=== PATIENT | male | born 1950 | race Caucasian/White ===

== ENCOUNTER 2022-07-01 19:17 | Inpatient (IN) | payer MEDICARE, OTHER ==
[~2022-07-01] VITALS: Ht 175.3 cm; Wt 72.6 kg
--- NOTE | 2022-07-01 20:42 | NUR ---
BIBTRANSPORTER FROM [facility] FOR PSYCH EVAL AND MEDICAL CLEARANCE FOR SI. PT DENIES ANY SI/HI AT THIS TIME. PT AWAKE AND ALERT BREATHING UNLABORED. SAFETUY MEASURES IN PLACE AND SITTER AT BEDSIDE
--- NOTE | 2022-07-01 20:45 | NUR ---
COVID SWAB DONE AND URINE SAMPLE SECURED
--- NOTE | 2022-07-01 21:04 | NUR ---
BLOOD DROW AT BED SIDE
[2022-07-01 21:30] LABS: BASOPHILS # (AUTO) 0.1 K/uL (0.0-0.2); BASOPHILS % (AUTO) 0.8 % (0.0-2.0); EOSINOPHILS % (AUTO) 0.9 % (0.0-6.0); HEMATOCRIT 44 % (39-51); HEMOGLOBIN 14.4 g/dL (13.5-17.5); LYMPHOCYTES # (AUTO) 1.9 K/uL (0.8-4.8); LYMPHOCYTES % (AUTO) 17.3 % (20.0-44.0); MEAN CORPUSCULAR HGB CONC 33 g/dl (31.0-36.0); MEAN CORPUSCULAR VOLUME 89 fL (80-96); MONOCYTES # (AUTO) 0.6 K/uL (0.1-1.30); MONOCYTES % (AUTO) 5.8 % (2.0-12.0); NEUTROPHILS # (AUTO) 8.3 K/uL (1.8-8.9); NEUTROPHILS % (AUTO) 75.2 % (43.0-81.0); PLATELET COUNT (AUTO) 349 K/uL (150-450); RED BLOOD CELL COUNT(AUTO) 4.88 MIL/uL (4.5-6.0)
[2022-07-01 21:52] LABS: CALCIUM, SERUM 8.3 mg/dL (8.5-10.1); CARBON DIOXIDE 30 mmol/L (21-32); CHLORIDE 102 mmol/L (98-107); CREATININE 1.1 mg/dL (0.6-1.3); GLUCOSE 102 mg/dL (74-106); POTASSIUM 3.7 mmol/L (3.5-5.1); SODIUM SERUM 137 mmol/L (136-145); UREA NITROGEN, BLOOD 16 mg/dL (7-18)
[2022-07-01 21:57] LABS: ALANINE AMINOTRANSFERASE 51 U/L (12-78); ALBUMIN 3.6 g/dL (3.4-5.0); ALCOHOL, BLOOD < 3 mg/dL (0-0); ALKALINE PHOSPHATASE 112 U/L (46-116); ASPARTATE AMINOTRANSFERASE 34 U/L (15-37); BILIRUBIN,DIRECT 0.1 mg/dL (0.0-0.2); BILIRUBIN,TOTAL 0.4 mg/dL (0.2-1.0); TOTAL PROTEIN, SERUM 8.3 g/dL (6.4-8.2)
[2022-07-01 21:58] LABS: ACETAMINOPHEN 0 ug/ml (10-30)
[2022-07-02 00:30] LABS: BILIRUBIN,URINE NEGATIVE (NEGATIVE); COLOR,URINE YELLOW (YELLOW); LEUKOCYTE ESTERASE ,URINE 1+ (NEGATIVE); NITRITE, URINE POSITIVE (NEGATIVE); PH,URINE 6.5 (5.0-8.0); PROTEIN,URINE TRACE mg/dl (NEGATIVE); UGLUCOSE NEGATIVE (NEGATIVE); UROBILINOGEN,URINE 0.2 EU/dL (0.2)
--- NOTE | 2022-07-02 00:33 | NUR ---
[facility] FOR PMRT FOR EVALUATION
[2022-07-02 00:49] LABS: BACTERIA,URINE Rare /HPF (None Seen); SQUAMOUS EPITHELIAL CELL,UR Many /HPF (None Seen); WBC,URINE 0-2 /HPF (0-3)
--- NOTE | 2022-07-02 04:21 | NUR ---
REPORT GIVEN TO GPS NURSE
--- NOTE | 2022-07-02 05:15 | NUR ---
PT TRANSPORTED TO [facility] VIA WHEELCHAIR IN STABLE CONDITION
[2022-07-02] MEDS ORDERED: ACETAMINOPHEN 325 MG TABLET PO PRN ×2 (05:30→08:00)
[2022-07-02] MEDS ORDERED: ZOLPIDEM TARTRATE 5 MG TABLET PO PRN (05:30)
[2022-07-02] MEDS ORDERED: MAGNESIUM HYDROXIDE 30 ML UDC PO PRN ×2 (05:30→08:00)
[2022-07-02] MEDS ORDERED: MAG HYDROX/AL HYDROX/SIMETH 30 ML UDC PO PRN (05:30)
--- NOTE | 2022-07-02 05:38 | NUR ---
RN NOTES : ADMISSION NOTES: ADMITTED THIS 72Y/O MALE PATIENT ADMIT FROM [facility]/ED INITIALLY FROM [facility]. ADMITTED TO 5150 HOLD, DTO ,DTS, GD, PER HOLD PT. AGGRESSIVE BEHAVIOR , NON COMPLIANT WITH MEDS,AT FACILITY PT. HAS ANGER OUTBURTS, ATTACKS HIS ROOMMATES AND STAFF REFUSES HIS MEDS AND YELLS AND SCREAMS , UPON FACE TO FACE ASSESSMENT PATIENT IS A&O X2 ANXIOUS ,EASILY AGITATED , PARANOID, FORGETFUL , DISORGNIZED, DISHELVED, GUARDED, DISHELVED, POOR HYGIENE, UNCOOPERTIVE,POOR DECISION MAKING, DENIES SI /HI AT THIS TIME, PT. IS POOR HISTORIAN, POOR INSIGHT ,POOR JUDGEMENT, PT. REFUSED TO ADMISSION CONSENT PAPERS, DUE TO AGITATED, CONFUSED , BOTH MD AWARE AND NOTIFIED OF THE ADMISSION, BELONGINGS CONTRABAND WERE DONE , PT. RIGHTS DISCUSS BY PACKAGING MANAGER , PROVIDE THE PT. WITH HANDBOOK, AND MEDICATIONS GUIDE, ENVIRONMENTAL SAFETY CHECK DONE, ENCOURAGED PT. VERBALIZED ANY FEELING CONCERN TO STAFF, ORIENT TO UNIT POLICY, NO ACUTE DISTRESS NOTED,VITAL SIGNS WNL ,DENIES ANY PAIN AT THIS TIME,WILL CONTINUE TO MONITOR FOR Q15 SAFETY AND BEHAVIOR.
[2022-07-02] MEDS ORDERED: BLOOD SUGAR DIAGNOSTIC 1 EACH STRIP IN ONE (05:45)
[2022-07-02] MEDS ORDERED: ASPI-1420 PO (05:56)
[2022-07-02] MEDS ORDERED: DOCU100C36 PO (05:57)
[2022-07-02] MEDS ORDERED: ATOR80TA PO (05:57)
[2022-07-02] MEDS ORDERED: HYDR12.55 PO (05:58)
[2022-07-02] MEDS ORDERED: LORA10TA7 PO (05:58)
[2022-07-02] MEDS ORDERED: MULT-754 PO (05:59)
[2022-07-02] MEDS ORDERED: QUET25TA PO (05:59)
[2022-07-02] MEDS ORDERED: ASCO500C18 PO (06:00)
[2022-07-02] MEDS ORDERED: CHOL500062 PO (06:01)
--- NOTE | 2022-07-02 06:16 | NUR ---
RN NOTES : PT. REFUSED FULL BODY SKIN ASSESSMENT AND PHOTOS, BUT PT. ALLOWED ONLY LEGS AND FOOTS SKIN ASSESSMENT. ENCOURAGED X3 , PT. STRONGLY REFUSED , PER PT. MY SKIN IS FINE.
[2022-07-02] MEDS ORDERED: LORAZEPAM 1 MG TABLET PO PRN (06:30)
[2022-07-02 06:38] VITALS: BP 125/72
[2022-07-02] MEDS ORDERED: Z GUARD REMEDY 4 OZ OINT TP PRN (07:00)
--- NOTE | 2022-07-02 07:06 | NUR ---
RN NOTES: CALLED FAMILY MEMEBER AND LEFT VOICE MAIL MESSAGES TO ANGELINE ANDREW (SISTER) AT [phone] , REGARDING ABOUT PT. ADMITTED IN [facility].
[2022-07-02 08:00] VITALS: BP 137/65
[2022-07-02] MEDS: LORAZEPAM 1 MG TABLET PO PRN (08:00)
--- NOTE | 2022-07-02 08:00 | NUR ---
Pt. is anxious, irritable, screaming, verbally abusive, demanding and angry to the staffs. Ativan po prn given and will continue to monitor for safety.
[2022-07-02] MEDS: DOCUSATE SODIUM 100 MG CAPSULE PO SCH ×2 (09:41→16:36)
[2022-07-02] MEDS: ASPIRIN EC 81 MG TABLET.DR PO SCH (09:41)
[2022-07-02] MEDS: LORATADINE 10 MG TABLET PO SCH (09:41)
--- NOTE | 2022-07-02 09:50 | NUR ---
RN Notes: Received pt. in a wheelchair in his room, guarded upon approached. Pt. was anxious, irritable, screaming, verbally abusive, demanding and angry to the staffs and Ativan po prn given. After pt. took the Ativan po pt.became cooperative and compliant on morning meds.Pt. is unkempt and malodorous and refused to take shower and said he will do it tomorrow. Encouraged to verbalize feelings and encouraged to take shower. Needs attended and will continue to monitor for safety.
--- NOTE | 2022-07-02 10:35 | NUR ---
Pt. refused for full body assessment and only allowing only the legs for the assessment. Staff noticed that pt. has big part on the private area under his pants but doesn't want us to see and per pt. he has a Pagevamp and it's been there for 10 years.
[2022-07-02] MEDS: Z GUARD REMEDY 4 OZ OINT TP SCH (14:37)
[2022-07-02 16:00] VITALS: BP 142/62
[2022-07-02] MEDS: risperiDONE 1 MG TABLET PO SCH (16:36)
[2022-07-02 20:00] VITALS: BP 126/68
[2022-07-02] MEDS: ZOLPIDEM TARTRATE 5 MG TABLET PO PRN (21:16)
[2022-07-02] MEDS: ATORVASTATIN 40 MG TABLET PO SCH (21:16)
[2022-07-03 08:00] VITALS: BP 133/75
[2022-07-03] MEDS ORDERED: ASCO500T10 PO (10:06)
[2022-07-03] MEDS ORDERED: MAG30ORA PO (10:06)
[2022-07-03] MEDS: Z GUARD REMEDY 4 OZ OINT TP SCH (10:43)
[2022-07-03] MEDS: MULTIVITAMINS,THERAGRAN 1 UDTAB TABLET PO SCH (10:45)
[2022-07-03] MEDS: DOCUSATE SODIUM 100 MG CAPSULE PO SCH ×2 (10:46→16:17)
[2022-07-03] MEDS: ASCORBIC ACID 500 MG TABLET PO SCH (10:46)
[2022-07-03] MEDS: CHOLECALCIFEROL 1,000 UNIT TABLET (VIT D3) PO SCH (10:47)
[2022-07-03] MEDS: HYDROCHLOROTHIAZIDE 25 MG TABLET PO SCH (10:48)
[2022-07-03] MEDS: LORATADINE 10 MG TABLET PO SCH (10:48)
[2022-07-03] MEDS: risperiDONE 1 MG TABLET PO SCH ×2 (10:49→16:17)
[2022-07-03] MEDS: ASPIRIN EC 81 MG TABLET.DR PO SCH (10:50)
[2022-07-03 16:00] VITALS: BP 126/80
[2022-07-03 20:25] VITALS: BP 132/61
[2022-07-03] MEDS: ATORVASTATIN 40 MG TABLET PO SCH (21:25)
--- NOTE | 2022-07-03 21:42 | NUR ---
RN NOTE PT REQUESTS FOR "SLEEPING PILL"; PT ADMINISTERED ZOLPIDEM 5 MG. 2000 BP OF 132/61, HR OF 62. WILL MONITOR FOR EFFECTIVENESS.
[2022-07-03] MEDS: ZOLPIDEM TARTRATE 5 MG TABLET PO PRN (21:45)
--- NOTE | 2022-07-03 22:16 | NUR ---
GPS NOTE PATIENT RECEIVED IN BED, AWAKE, A&O X2. NO S/S OF RESP DISTRESS, NO SOB OR COUGH, NON-LABORED AND EQUAL BREATHING. PT COMPLIANT WITH MEDICATIONS; COOPERATIVE. PATIENT APPEARS CALM AT THE MOMENT WITH NO SIGNS OF EMOTIONAL DISTRESS. NEED MINIMAL ASSIST WITH ADL'S. ALL NEEDS ATTENDED AND ANTICIPATED. WILL CONTINUE TO MONITOR THROUGHOUT THE NIGHT Q15MIN FOR SAFETY AND BEHAVIOR.
--- NOTE | 2022-07-04 06:36 | NUR ---
RN NOTE PT REFUSED AM LABS
--- NOTE | 2022-07-04 06:55 | NUR ---
GPS NOTE PATIENT REMAINS IN BED, ASLEEP BUT EASILY AROUSABLE, A&O X2. NO S/S OF RESP DISTRESS, NO SOB OR COUGH, NON-LABORED AND EQUAL BREATHING. PT COMPLIANT WITH MEDICATIONS. PATIENT REMAINED CALM AND COOPERATIVE THROUGHOUT THE NIGHT WITH NO SIGNS OF EMOTIONAL DISTRESS. NEED MINIMAL ASSIST WITH ADL'S. ALL NEEDS ATTENDED. ALL DUE MEDS ADMINISTERED DURING THE NIGHT. WILL ENDORSE TO DAYSHIFT NURSE TO CONTINUE CARE.
[2022-07-04 08:00] VITALS: BP 118/58
[2022-07-04] MEDS: DOCUSATE SODIUM 100 MG CAPSULE PO SCH ×2 (08:50→17:21)
[2022-07-04] MEDS: risperiDONE 1 MG TABLET PO SCH (08:51)
[2022-07-04] MEDS: LORATADINE 10 MG TABLET PO SCH (08:52)
[2022-07-04] MEDS: ASCORBIC ACID 500 MG TABLET PO SCH (08:52)
[2022-07-04] MEDS: MULTIVITAMINS,THERAGRAN 1 UDTAB TABLET PO SCH (08:52)
[2022-07-04] MEDS: ASPIRIN EC 81 MG TABLET.DR PO SCH (08:52)
[2022-07-04] MEDS: CHOLECALCIFEROL 1,000 UNIT TABLET (VIT D3) PO SCH (08:52)
[2022-07-04] MEDS: Z GUARD REMEDY 4 OZ OINT TP SCH (08:53)
[2022-07-04] MEDS: HYDROCHLOROTHIAZIDE 25 MG TABLET PO SCH (08:53)
--- NOTE | 2022-07-04 09:42 | NUR ---
GABBIE Initial Discharge Plan: Patient currently resides at [facility] [place] [address]; ([phone]) he has been residing at the facility for three years. GABBIE goreharley Lujan ([phone]) stated that she would have to discuss with treatment team and will let this typewriter ribbon winder know if pt is welcomed back or not. GABBIE will contact pt's sister Charlene ([phone]) to discuss treatment/discharge plan. GABBIE will work with the MD, family, and treatment team to help coordinate appropriate discharge.
--- NOTE | 2022-07-04 09:42 | NUR ---
GABBIE Clinical Note: Pt placed on a 5150 hold for danger to himself, danger to others, and GD. Per hold, pt has been aggressive with staff and non complaint. Patient currently resides at [facility] [place] [address]; ([phone]) he has been residing at the facility for three years. GABBIE gauthier Tai ([phone]) stated that she would have to discuss with treatment team and will let this manual writer know if pt is welcomed back or not. GABBIE will contact pt's sister Charlene ([phone]) to discuss treatment/discharge plan.
--- NOTE | 2022-07-04 09:43 | NUR ---
Treatment Plan: Pt refused to sign and was suspicious.
--- NOTE | 2022-07-04 11:50 | NUR ---
GABBIE Family Contact: SW contacted pt's sister Charlene ([phone]) and left a detailed voicemail of pt's discharge/treatment plan.
[2022-07-04 12:10] LABS: BASOPHILS # (AUTO) 0.1 K/uL (0.0-0.2); EOSINOPHILS % (AUTO) 2.5 % (0.0-6.0); HEMATOCRIT 44 % (39-51); HEMOGLOBIN 14.5 g/dL (13.5-17.5); LYMPHOCYTES # (AUTO) 1.8 K/uL (0.8-4.8); LYMPHOCYTES % (AUTO) 20.7 % (20.0-44.0); MEAN CORPUSCULAR HGB CONC 33 g/dl (31.0-36.0); MEAN CORPUSCULAR VOLUME 89 fL (80-96); MONOCYTES # (AUTO) 0.6 K/uL (0.1-1.30); MONOCYTES % (AUTO) 6.6 % (2.0-12.0); NEUTROPHILS % (AUTO) 69.2 % (43.0-81.0); PLATELET COUNT (AUTO) 315 K/uL (150-450); WHITE BLOOD COUNT (AUTO) 8.7 K/uL (4.3-11.0)
[2022-07-04 12:17] LABS: CALCIUM, SERUM 8.4 mg/dL (8.5-10.1); CREATININE 1.1 mg/dL (0.6-1.3); POTASSIUM 3.5 mmol/L (3.5-5.1)
--- NOTE | 2022-07-04 14:02 | NUR ---
GABBIE Family Contact: SW contacted pt's sister Charlene ([phone]) and discussed pt's treatment. She stated that pt was diagnosed with schizophrenia. She reported that she would want pt back to [facility], however, she reported if that does not work out she would want this designer/writer to try another placement possibly [facility].
--- NOTE | 2022-07-04 14:48 | NUR ---
Facility Contact: SW spoke with Julio Goldsmith from [place] ([phone]) and he stated that pt is welcomed back but would prefer pt to go to a different facility.
[2022-07-04 16:00] VITALS: BP 122/68
[2022-07-04] MEDS: risperiDONE 0.25 MG TABLET PO SCH (17:45)
[2022-07-04 19:45] VITALS: BP 105/59
[2022-07-04] MEDS: ATORVASTATIN 40 MG TABLET PO SCH (21:28)
[2022-07-04] MEDS: ZOLPIDEM TARTRATE 5 MG TABLET PO PRN (21:29)
[2022-07-05 08:00] VITALS: BP 147/72
--- NOTE | 2022-07-05 08:18 | NUR ---
SNF REFERRAL: GABBIE SENT CLINICALS TO GA DAVIS FROM [facility] ([phone]) FOR PLACEMENT. SW SENT H & P, PROGRESS NOTES, AND MEDICATION LIST.
[2022-07-05] MEDS: LORATADINE 10 MG TABLET PO SCH (08:22)
[2022-07-05] MEDS: ASCORBIC ACID 500 MG TABLET PO SCH (08:22)
[2022-07-05] MEDS: ASPIRIN EC 81 MG TABLET.DR PO SCH (08:22)
[2022-07-05] MEDS: DOCUSATE SODIUM 100 MG CAPSULE PO SCH ×2 (08:23→17:17)
[2022-07-05] MEDS: CHOLECALCIFEROL 1,000 UNIT TABLET (VIT D3) PO SCH (08:23)
[2022-07-05] MEDS: risperiDONE 0.25 MG TABLET PO SCH ×2 (08:23→17:17)
[2022-07-05] MEDS: HYDROCHLOROTHIAZIDE 25 MG TABLET PO SCH (08:24)
[2022-07-05] MEDS: Z GUARD REMEDY 4 OZ OINT TP SCH (08:24)
[2022-07-05] MEDS: MULTIVITAMINS,THERAGRAN 1 UDTAB TABLET PO SCH (08:24)
--- NOTE | 2022-07-05 14:12 | NUR ---
Facility Contact: SW spoke with Julio Admin from [place] ([phone]) and stated that pt stated he does not want to go to any other facility and wants to return back. Julio stated that pt is welcomed back and he will provide transportation.
--- NOTE | 2022-07-05 14:12 | NUR ---
SW Note: Pt stated that he would want to return back to [facility] and does not want to go to any other facility.
[2022-07-05 16:08] VITALS: BP 130/69
[2022-07-05 20:03] VITALS: BP 132/97
[2022-07-05] MEDS: ZOLPIDEM TARTRATE 5 MG TABLET PO PRN (21:05)
[2022-07-05] MEDS: ATORVASTATIN 40 MG TABLET PO SCH (21:06)
[2022-07-06 08:00] VITALS: BP 105/67
[2022-07-06] MEDS: DOCUSATE SODIUM 100 MG CAPSULE PO SCH ×2 (08:24→16:19)
[2022-07-06] MEDS: HYDROCHLOROTHIAZIDE 25 MG TABLET PO SCH (08:25)
[2022-07-06] MEDS: LORATADINE 10 MG TABLET PO SCH (08:25)
[2022-07-06] MEDS: CHOLECALCIFEROL 1,000 UNIT TABLET (VIT D3) PO SCH (08:26)
[2022-07-06] MEDS: MULTIVITAMINS,THERAGRAN 1 UDTAB TABLET PO SCH (08:28)
[2022-07-06] MEDS: Z GUARD REMEDY 4 OZ OINT TP SCH (08:28)
[2022-07-06] MEDS: risperiDONE 0.25 MG TABLET PO SCH ×2 (09:00→16:20)
[2022-07-06] MEDS: ASPIRIN EC 81 MG TABLET.DR PO SCH (09:01)
[2022-07-06] MEDS: ASCORBIC ACID 500 MG TABLET PO SCH (09:01)
[2022-07-06 16:00] VITALS: BP 127/78
--- NOTE | 2022-07-06 16:18 | NUR ---
RN-CO: CT OF PELVIS W/O CONTRAST DONE , AWAITING FOR RESULT.
--- NOTE | 2022-07-06 18:17 | NUR ---
RN-CO: DR BONNER (SURGEON MADE AWARE RE PT'S INGUINAL HERNIA ) OF THE CONSULT AND STATED " I WILL SEE THAT THE PT TOMORROW
[2022-07-06 20:03] VITALS: BP 117/73
[2022-07-06] MEDS: ZOLPIDEM TARTRATE 5 MG TABLET PO PRN (21:37)
[2022-07-06] MEDS: ATORVASTATIN 40 MG TABLET PO SCH (21:37)
[2022-07-07 08:00] VITALS: BP 127/74
[2022-07-07] MEDS: ASPIRIN EC 81 MG TABLET.DR PO SCH (08:00)
[2022-07-07] MEDS: CHOLECALCIFEROL 1,000 UNIT TABLET (VIT D3) PO SCH (08:01)
[2022-07-07] MEDS: MULTIVITAMINS,THERAGRAN 1 UDTAB TABLET PO SCH (08:01)
[2022-07-07] MEDS: HYDROCHLOROTHIAZIDE 25 MG TABLET PO SCH (08:02)
[2022-07-07] MEDS: LORATADINE 10 MG TABLET PO SCH (08:02)
[2022-07-07] MEDS: ASCORBIC ACID 500 MG TABLET PO SCH (08:02)
[2022-07-07] MEDS: risperiDONE 0.25 MG TABLET PO SCH ×2 (08:05→16:13)
[2022-07-07] MEDS: DOCUSATE SODIUM 100 MG CAPSULE PO SCH ×2 (08:05→16:13)
--- NOTE | 2022-07-07 08:39 | NUR ---
Dr. Matos in the unit and made aware of the result of the abdomen and the pelvis.
--- NOTE | 2022-07-07 09:20 | NUR ---
Dr. Streeter examined pt. in the unit.
--- NOTE | 2022-07-07 09:45 | NUR ---
RN Notes: Received pt. awake in bed, responsive to staffs, no distress and no agitation noted. Ate 100% for breakfast, compliant on meds and wanted it to be crushed. Pt. is with unsteady gait and pt. refused to use wheelchair and refused to use a walker and said he is fine. Encouraged to take shower and motivated to verbalize feelings. Pt. seen in the dining room and watching football. Needs attended and will continue to monitor for safety.
[2022-07-07] MEDS: Z GUARD REMEDY 4 OZ OINT TP SCH (10:12)
[2022-07-07] MEDS: MAG HYDROX/AL HYDROX/SIMETH 30 ML UDC PO PRN (14:05)
[2022-07-07 16:00] VITALS: BP 112/60
--- NOTE | 2022-07-07 19:30 | NUR ---
GPS RN NOTE, RECEIVED PATIENT AWAKE AND IN BED, NO S/S OR COMPLAINTS OF PAIN AT THIS TIME. PATIENT IS DISPLAYING NO S/S OF APPARENT DISTRESS AT THIS TIME. PATIENT BREATHING IS UNLABORED WITH EQUAL RISE AND FALL OF THE CHEST. PATIENT IS ALERT AND ORIENTED X 2 ON ROOM AIR WITH A SPO2 98%. PATIENT IS COMPLIANT WITH MEDICATIONS, LABILE, EASILY IRRITABLE, ACCEPTING REDIRECTION, AND COOPERATIVE. PATIENT DENIES SUICIDAL AND HOMICIDAL IDEATIONS AT THIS TIME. PATIENT ASSISTED WITH TURNING AND REPOSITIONING Q2HR AND PRN FOR COMFORT AND CIRCULATION. PATIENT HAS NO NEEDS AT THIS TIME. PATIENT EDUCATED ON THE USE OF THE CALL ESCALANTE. PATIENT BED SIDE RAILS UP X 2 FOR SAFETY. PATIENT BED IS LOCKED, LOW, WITH BED ALARM ON. WILL CONTINUE TO MONITOR THIS PATIENT Q15 MINUTES WITH THE HELP OF STAFF TO MAINTAIN SAFETY.
[2022-07-07] MEDS: LORAZEPAM 1 MG TABLET PO PRN (19:36)
--- NOTE | 2022-07-07 19:36 | NUR ---
GPS RN NOTE, PATIENT HAS A COMPLAINT OF FEELING ANXIOUS, IS YELLING, IS POSTURING, AND REQUESTING ATIVAN AT THIS TIME. PATIENT VITAL SIGNS ARE STABLE. GAVE ATIVAN 1 MG PO Q6HR PRN ORDERED. WILL REASSESS FOR ANXIETY AND I WILL CONTINUE TO MONITOR THIS PATIENT WITH THE HELP OF STAFF.
[2022-07-07 20:00] VITALS: BP 149/81
[2022-07-07] MEDS: ATORVASTATIN 40 MG TABLET PO SCH (21:51)
[2022-07-08] MEDS: ZOLPIDEM TARTRATE 5 MG TABLET PO PRN ×2 (02:26→21:32)
--- NOTE | 2022-07-08 02:26 | NUR ---
GPS RN NOTE, PATIENT HAS A COMPLAINT OF NOT BEING ABLE TO SLEEP AND IS REQUESTING AMBIEN AT THIS TIME. PATIENT VITAL SIGNS ARE STABLE. GAVE AMBIEN 5MG PO HS PRN ORDERED. WILL REASSESS FOR INSOMNIA AND I WILL CONTINUE TO MONITOR THIS PATIENT WITH THE HELP OF STAFF.
[2022-07-08 08:00] VITALS: BP 118/81
[2022-07-08] MEDS: CHOLECALCIFEROL 1,000 UNIT TABLET (VIT D3) PO SCH (08:49)
[2022-07-08] MEDS: MULTIVITAMINS,THERAGRAN 1 UDTAB TABLET PO SCH (08:49)
[2022-07-08] MEDS: ASCORBIC ACID 500 MG TABLET PO SCH (08:50)
[2022-07-08] MEDS: LORATADINE 10 MG TABLET PO SCH (08:50)
[2022-07-08] MEDS: DOCUSATE SODIUM 100 MG CAPSULE PO SCH ×2 (08:50→16:37)
[2022-07-08] MEDS: HYDROCHLOROTHIAZIDE 25 MG TABLET PO SCH (08:50)
[2022-07-08] MEDS: risperiDONE 0.25 MG TABLET PO SCH ×2 (08:50→16:37)
[2022-07-08] MEDS: ASPIRIN EC 81 MG TABLET.DR PO SCH (08:50)
[2022-07-08] MEDS: Z GUARD REMEDY 4 OZ OINT TP SCH (08:51)
[2022-07-08] MEDS: MAG HYDROX/AL HYDROX/SIMETH 30 ML UDC PO PRN ×2 (09:45→19:34)
[2022-07-08] MEDS: LORAZEPAM 1 MG TABLET PO PRN (12:18)
[2022-07-08 16:00] VITALS: BP 115/85
--- NOTE | 2022-07-08 19:26 | NUR ---
GPS RN NOTE, RECEIVED PATIENT AWAKE AND IN BED, NO S/S OR COMPLAINTS OF PAIN AT THIS TIME. PATIENT IS DISPLAYING NO S/S OF APPARENT DISTRESS AT THIS TIME. PATIENT BREATHING IS UNLABORED WITH EQUAL RISE AND FALL OF THE CHEST. PATIENT IS ALERT AND ORIENTED X 2 ON ROOM AIR WITH A SPO2 96%. PATIENT IS COMPLIANT WITH MEDICATIONS, LABILE, EASILY IRRITABLE, ACCEPTING REDIRECTION, AND COOPERATIVE. PATIENT DENIES SUICIDAL AND HOMICIDAL IDEATIONS AT THIS TIME. PATIENT ASSISTED WITH TURNING AND REPOSITIONING Q2HR AND PRN FOR COMFORT AND CIRCULATION. PATIENT HAS NO NEEDS AT THIS TIME. PATIENT EDUCATED ON THE USE OF THE CALL ESCALANTE. PATIENT BED SIDE RAILS UP X 2 FOR SAFETY. PATIENT BED IS LOCKED, LOW, WITH BED ALARM ON. WILL CONTINUE TO MONITOR THIS PATIENT Q15 MINUTES WITH THE HELP OF STAFF TO MAINTAIN SAFETY.
--- NOTE | 2022-07-08 19:34 | NUR ---
GPS RN NOTE, PATIENT HAS A COMPLAINT OF INDIGESTION AND IS REQUESTING MAALOX AT THIS TIME. PATIENT VITAL SIGNS ARE STABLE GAVE MAALOX 30ML 1 UNIT DOSE Q4HR PRN. WILL CONTINUE TO MONITOR THIS PATIENT WITH THE HELP OF STAFF.
[2022-07-08 20:00] VITALS: BP 131/82
[2022-07-08] MEDS: ATORVASTATIN 40 MG TABLET PO SCH (21:32)
[2022-07-09 08:00] VITALS: BP 119/77
[2022-07-09] MEDS: DOCUSATE SODIUM 100 MG CAPSULE PO SCH ×2 (08:08→16:22)
[2022-07-09] MEDS: ASCORBIC ACID 500 MG TABLET PO SCH (08:08)
[2022-07-09] MEDS: MULTIVITAMINS,THERAGRAN 1 UDTAB TABLET PO SCH (08:08)
[2022-07-09] MEDS: CHOLECALCIFEROL 1,000 UNIT TABLET (VIT D3) PO SCH (08:08)
[2022-07-09] MEDS: LORATADINE 10 MG TABLET PO SCH (08:08)
[2022-07-09] MEDS: risperiDONE 0.25 MG TABLET PO SCH ×2 (08:08→16:22)
[2022-07-09] MEDS: ASPIRIN EC 81 MG TABLET.DR PO SCH (08:08)
[2022-07-09] MEDS: HYDROCHLOROTHIAZIDE 25 MG TABLET PO SCH (08:09)
[2022-07-09] MEDS: Z GUARD REMEDY 4 OZ OINT TP SCH (09:28)
[2022-07-09] MEDS: MAG HYDROX/AL HYDROX/SIMETH 30 ML UDC PO PRN ×2 (15:15→19:46)
[2022-07-09 16:00] VITALS: BP 136/62
--- NOTE | 2022-07-09 19:30 | NUR ---
GPS RN NOTES RECEIVED ON BED,ON SITTING POSITION,BREATHING REGULAR,NOT IN ANY FORM OF DISTRESS.A/O X 2-3,ABLE TO VERBALIZE NEEDS,VERBALIZE HAVING ACID REFLUX,WILL MEDICATE.AMBULATE VIA WHEELCHAIR,NOTED HUGE SCROTAL HERNIA.FALL PRECAUTION OBSERVED,WILL CONTINUE TO MONITOR BEHAVIOR.
--- NOTE | 2022-07-09 19:46 | NUR ---
GPS RN NOTES MAALOX 30ML PO GIVEN ORDERED AND PER PATIENT REQUEST.
[2022-07-09 20:09] VITALS: BP 133/79
[2022-07-09] MEDS: ATORVASTATIN 40 MG TABLET PO SCH (21:05)
[2022-07-09] MEDS: ZOLPIDEM TARTRATE 5 MG TABLET PO PRN (23:21)
--- NOTE | 2022-07-09 23:21 | NUR ---
GPS RN NOTES AWAKE NOW ASKING FOR SLEEPING PILL.AMBIEN 5MG PO GIVEN WITH PUDDING,TAKEN WELL.
--- NOTE | 2022-07-10 06:19 | NUR ---
GPS RN NOTES IN ROOM AWAKE,ALERT X2-3,SLEPT WITH INTERVALS,COOPERATIVE AND REDIRECTABLE,FOLLOW INSTRUCTIONS,MED COMPLIANT.CRUSH MEDS PER PATIENT PREFERENCE.VITAL SIGNS STABLE.REFUSED TO CHANGE HIS PAJAMA.
[2022-07-10 08:00] VITALS: BP 104/61
[2022-07-10] MEDS: MULTIVITAMINS,THERAGRAN 1 UDTAB TABLET PO SCH (08:09)
[2022-07-10] MEDS: ASPIRIN EC 81 MG TABLET.DR PO SCH (08:09)
[2022-07-10] MEDS: HYDROCHLOROTHIAZIDE 25 MG TABLET PO SCH (08:09)
[2022-07-10] MEDS: ASCORBIC ACID 500 MG TABLET PO SCH (08:09)
[2022-07-10] MEDS: CHOLECALCIFEROL 1,000 UNIT TABLET (VIT D3) PO SCH (08:09)
[2022-07-10] MEDS: risperiDONE 0.25 MG TABLET PO SCH ×2 (08:10→16:03)
[2022-07-10] MEDS: DOCUSATE SODIUM 100 MG CAPSULE PO SCH ×2 (08:10→16:02)
[2022-07-10] MEDS: LORATADINE 10 MG TABLET PO SCH (08:10)
[2022-07-10] MEDS: Z GUARD REMEDY 4 OZ OINT TP SCH (08:19)
--- NOTE | 2022-07-10 09:11 | NUR ---
RN-CO:RECEIVED PATIENT AWAKE, TOOK HIS MEDICATIONS, SOMEWHAT BETTER THAN LAST WEEK. DISHEVELED AND MALODOROUS BUT REFUSED TO SHOWER. WE WILL CONTINUE TO ENCOURAGE TO SHOWER.DENIED SI/HI.
[2022-07-10] MEDS: LORAZEPAM 1 MG TABLET PO PRN (13:50)
--- NOTE | 2022-07-10 13:52 | NUR ---
RN-CO: ATIVAN 1 MG PO GIVEN FOR C/O ANXIETY.
[2022-07-10 16:00] VITALS: BP 110/74
[2022-07-10] MEDS: MAG HYDROX/AL HYDROX/SIMETH 30 ML UDC PO PRN (19:40)
--- NOTE | 2022-07-10 19:53 | NUR ---
RN NOTES Received patient noted wheeling self around the hallway. Breathing unlabored not in any form of distress. Able to make needs known. Patient is alert and oriented X3, Patient appears to be preoccupied to his own thought process, guarded, unmotivated to self-care, unkempt and disheveled. Denies SI/HI/AVH at this time. Safety precautions maintained. Will continue to monitor q15 min rounds for safety and behavior.
[2022-07-10 20:30] VITALS: BP 104/73
[2022-07-10] MEDS: ZOLPIDEM TARTRATE 5 MG TABLET PO PRN (21:12)
[2022-07-10] MEDS: ATORVASTATIN 40 MG TABLET PO SCH (21:12)
--- NOTE | 2022-07-11 06:56 | NUR ---
RN NOTES PATIENT IN BED AWAKE, ALERT AND ORIENTED X3. ABLE TO MAKE NEEDS KNOWN. BREATHING UNLABORED NOT IN ANY FORM OF DISTRESS. PATIENT REMAINS UNMOTIVATED TO SELF CARE, UNKEMPT AND DISHEVELED. OFFERED/ENCOURAGED PATIENT TO TAKE A SHOWER. PATIENT STATES "NO, I'LL TAKE A SHOWER WHEN I GET DISCHARGE". DENIED SI/HI AT THIS TIME. SAFETY PRECAUTIONS MAINTAINED. WILL ENDORSE TO THE DAY SHIFT FOR CONTINUITY OF CARE.
[2022-07-11 08:00] VITALS: BP 122/74
[2022-07-11] MEDS: LORAZEPAM 1 MG TABLET PO PRN ×2 (08:13→14:51)
--- NOTE | 2022-07-11 08:13 | NUR ---
RN-CO_ ATIVAN 1 MG PO GIVEN FOR AGITATION M/B PUNCHING THE WALL.
[2022-07-11] MEDS: MULTIVITAMINS,THERAGRAN 1 UDTAB TABLET PO SCH (08:14)
[2022-07-11] MEDS: HYDROCHLOROTHIAZIDE 25 MG TABLET PO SCH (08:14)
[2022-07-11] MEDS: LORATADINE 10 MG TABLET PO SCH (08:14)
[2022-07-11] MEDS: risperiDONE 0.25 MG TABLET PO SCH ×2 (08:15→16:07)
[2022-07-11] MEDS: CHOLECALCIFEROL 1,000 UNIT TABLET (VIT D3) PO SCH (08:15)
[2022-07-11] MEDS: ASCORBIC ACID 500 MG TABLET PO SCH (08:15)
[2022-07-11] MEDS: ASPIRIN EC 81 MG TABLET.DR PO SCH (08:16)
[2022-07-11] MEDS: DOCUSATE SODIUM 100 MG CAPSULE PO SCH ×2 (08:16→16:07)
[2022-07-11] MEDS: Z GUARD REMEDY 4 OZ OINT TP SCH (08:43)
--- NOTE | 2022-07-11 09:54 | NUR ---
Court Notification: SW contacted pt's sister Charlene ([phone]) and had left a voicemail of pt's 0945 hearing.
--- NOTE | 2022-07-11 09:55 | NUR ---
Court Hearing: Patient's court hearing for 0870 was today and it was upheld for GD.
[2022-07-11] MEDS: MAG HYDROX/AL HYDROX/SIMETH 30 ML UDC PO PRN (13:00)
--- NOTE | 2022-07-11 14:51 | NUR ---
RN-CO: ATIVAN 1 MG PO GIVEN FOR C/O ANXIETY.
[2022-07-11 16:00] VITALS: BP 145/77
[2022-07-11] MEDS: ATORVASTATIN 40 MG TABLET PO SCH (21:01)
[2022-07-11] MEDS: ZOLPIDEM TARTRATE 5 MG TABLET PO PRN (21:01)
[2022-07-11 21:10] VITALS: BP 152/77
--- NOTE | 2022-07-12 07:39 | NUR ---
gps rn note patient up on Chair having breakfast, all needs attended will cont to monitor, no sob noted, no c\o discomfort at this time
[2022-07-12 08:00] VITALS: BP 104/61
--- NOTE | 2022-07-12 08:05 | NUR ---
GABBIE Discharge Note: Pt will be discharged to [facility] (SNF) located at [address] [place] [id number]; ([phone]). Pt will be transported via the facility pickup around 10AM. GABBIE contacted pt's sister Charlene ([phone]), has been informed. Upon discharge, the pt appears to be in a euthymic mood and presents with a calm affect. Pt appears to be alert and oriented x2 (self,place). Pt denies both suicidal and homicidal ideation as well as auditory and visual hallucinations. Pt appears to be ungroomed and appears to be ambulatory with a steady gait. Pt will be under the care of his psychiatrist, Dr. Suh, located at [address] [place] [address]; and web site specialist, Dr. Yarbrough, located at [address] [place] [address] [id number], [place] [address]; . Pt signed the Choice of Vendor and the multidisciplinary exit care form was signed, completed, and a copy was given to the pt.
[2022-07-12] MEDS: ASPIRIN EC 81 MG TABLET.DR PO SCH (08:07)
[2022-07-12] MEDS: DOCUSATE SODIUM 100 MG CAPSULE PO SCH (08:07)
[2022-07-12] MEDS: MULTIVITAMINS,THERAGRAN 1 UDTAB TABLET PO SCH (08:07)
[2022-07-12 08:08] VITALS: BP 104/61
[2022-07-12] MEDS: HYDROCHLOROTHIAZIDE 25 MG TABLET PO SCH (08:08)
[2022-07-12] MEDS: risperiDONE 0.25 MG TABLET PO SCH (08:10)
[2022-07-12] MEDS: LORATADINE 10 MG TABLET PO SCH (08:10)
[2022-07-12] MEDS: CHOLECALCIFEROL 1,000 UNIT TABLET (VIT D3) PO SCH (08:11)
[2022-07-12] MEDS: ASCORBIC ACID 500 MG TABLET PO SCH (08:13)
[2022-07-12] MEDS: Z GUARD REMEDY 4 OZ OINT TP SCH (08:15)
[2022-07-12] MEDS: LORAZEPAM 1 MG TABLET PO PRN (09:03)
--- NOTE | 2022-07-12 09:04 | NUR ---
GPS RN NOTE AGITATED AND FEELS ANXIOUS ATIVAN 1MG PO GIVEN ORDERED
--- NOTE | 2022-07-12 09:21 | NUR ---
RN-NOTES RECEIVED T.O ORDER FROM DR. BAR TO DISCHARGE PATIENT AND D/C HOLD.
--- NOTE | 2022-07-12 10:00 | NUR ---
GPS RN NOTE PATIENT UNCOOPERATIVE TO CHECK BODY , REFUSED TO TAKE PICTURE UPON DISCHARGE
--- NOTE | 2022-07-12 10:10 | NUR ---
GPS RN NOTE CALLED TO SNF ,REPORT GIVEN TO FIDEL MESSER
--- NOTE | 2022-07-12 10:43 | NUR ---
GPS RN NOTE MANAGEMENT TRAINEE ARRIVED FROM FACILITY, PAPER WORK GIVEN , PATIENT LEFT HOSPITAL WITH STABLE CONDITION . PATIENT DENIES BOTH SUICIDAL AND HOMICIDAL IDEATION ,WENT TO LOBBY ON W\C WITH MANAGEMENT TRAINEE AND MARKETING INSTRUCTOR , ALL BELONGING GIVEN.
== END 2022-07-12 10:45 | DRG 885 ==
LOC: ER 19:24 → GPS 07-02 04:52
PROVIDERS: ADMIT Psychiatry & Neurology Psychiatry; ATTEND Internal Medicine
DX: F20.0 Paranoid schizophrenia (principal); F03.92 Unspecified dementia, unspecified severity, with psychotic disturbance; N39.0 Urinary tract infection, site not specified; Z20.822 Contact with and (suspected) exposure to COVID-19; F29 Unspecified psychosis not due to a substance or known physiological condition; Z86.73 Personal history of transient ischemic attack (TIA), and cerebral infarction without residual deficits; I10 Essential (primary) hypertension; E78.5 Hyperlipidemia, unspecified; R13.10 Dysphagia, unspecified; Z88.5 Allergy status to narcotic agent; K40.20 Bilateral inguinal hernia, without obstruction or gangrene, not specified as recurrent; Z79.899 Other long term (current) drug therapy; Z91.14 Patient's other noncompliance with medication regimen
CPT/HCPCS: 36415; 80048-TC; 80061-TC; 80076-TC; 81001; 82962-TC; 85025-TC; 87081-TC; 97116-TC; 97530-TC; C9803; G0480